=== PATIENT | male | born 1980 | race Caucasian/White ===

== ENCOUNTER 2019-04-25 12:47 | Inpatient (IN) | payer OTHER ==
[~2019-04-25] VITALS: Ht 188 cm; Wt 94.3 kg
--- NOTE | 2019-04-25 12:53 | NUR ---
PT BROUGHT TO CT ACC BY TITA LUO AND DIRECTOR OF TESTING PT IS AOX3, ABLE TO FOLLOW COMMANDS, RA C/O WEAKNESS AND NUMBNESS TO L ARM
--- NOTE | 2019-04-25 12:58 | NUR ---
TELE STROKE ACTIVATED VIA [employer] REQUEST [place].
[2019-04-25 12:59] LABS: BASOPHILS % (AUTO) 0.6 % (0.0-2.0); EOSINOPHILS # (AUTO) 0.1 K/uL (0.0-0.7); EOSINOPHILS % (AUTO) 1.7 % (0.0-7.0); HEMATOCRIT 47.7 % (36.7-47.1); HEMOGLOBIN 16.1 g/dL (12.5-16.3); LYMPHOCYTES # (AUTO) 2.5 K/uL (20.0-40.0); LYMPHOCYTES % (AUTO) 33.4 % (20.5-51.5); MEAN CORPUSCULAR HEMOGLOBIN 28.5 uug (23.8-33.4); MEAN CORPUSCULAR HGB CONC 34 g/dL (32.5-36.3); MEAN CORPUSCULAR VOLUME 84.3 fL (73.0-96.2); MONOCYTES # (AUTO) 0.7 K/uL (2.0-10.0); MONOCYTES % (AUTO) 9.8 % (0.0-11.0); NEUTROPHILS % (AUTO) 54.5 % (38.5-71.5); PLATELET COUNT (AUTO) 295 K/uL (152-348); RED BLOOD CELL COUNT(AUTO) 5.65 MIL/uL (4.06-5.63); WHITE BLOOD COUNT (AUTO) 7.4 K/uL (3.6-10.2)
--- NOTE | 2019-04-25 13:04 | NUR ---
PT BACK FROM CT, PLACED ON MONITOR, CONTACTED [facility] TELE STROKE [phone] AND INFORMED THE PT IS READY FOR ASSESSMENT.
--- NOTE | 2019-04-25 13:04 | NUR ---
PT RETURN FROM CT VIA [facility] BY [employer]
[2019-04-25 13:06] LABS: CREATININE 1.2 mg/dL (0.6-1.3); POTASSIUM 3.4 mmol/L (3.5-5.1)
--- NOTE | 2019-04-25 13:13 | NUR ---
DR. STEPHENSON COMMUNICATING WITH PT VIA TELESTROKE. Addendum: 04/25/19 at 1323 by CAT CORRECTION ON THE NAME OF THE TELE NEURO MD: DR. JOHNSON.
[2019-04-25 13:19] LABS: BILIRUBIN,DIRECT 0.1 mg/dL (0.0-0.2); BILIRUBIN,TOTAL 0.8 mg/dL (0.2-1.0); TOTAL PROTEIN, SERUM 8.5 g/dL (6.4-8.2)
--- NOTE | 2019-04-25 13:23 | NUR ---
NASIMA HICKEY (NEUROLOGY TELEMED) ON THE PHONE WITH MESFIN
--- NOTE | 2019-04-25 13:24 | NUR ---
DR LAUREN BLANCO [facility] (PLANT CLERK) PAGED
--- NOTE | 2019-04-25 13:26 | NUR ---
CALL FOR BED DONE WAITING FOR CALL BACK
[2019-04-25] MEDS ORDERED: ASPIRIN 325 MG TABLET PO ONE (13:45)
[2019-04-25] MEDS ORDERED: ASPIRIN 325 MG TABLET ONE (13:47)
--- NOTE | 2019-04-25 13:55 | NUR ---
WAITING FOR NURSE CALL BACK TO RECEIVE REPORT
--- NOTE | 2019-04-25 14:00 | NUR ---
DR AGUILAR CALLED BACK AND ON THE PHONE WITH DR MONTEIRO
--- NOTE | 2019-04-25 14:00 | NUR ---
PT OK TO ADMIT TO TELE RM 320 DX: TIA UNDER ANNE MAO
--- NOTE | 2019-04-25 14:11 | NUR ---
HAND OFF AND SBAR GIVEN TO MILADY ALVAREZ
[2019-04-25 14:31] LABS: *AMPHETAMINE, URINE NEGATIVE (NEGATIVE); *BARBITURATE, URINE NEGATIVE (NEGATIVE); *CANNABINOID, URINE NEGATIVE (NEGATIVE); *COCCAINE, URINE NEGATIVE (NEGATIVE); *OPIATE, URINE NEGATIVE (NEGATIVE); *PHENCYCLIDINE SCREEN,URINE NEGATIVE (NEGATIVE)
--- NOTE | 2019-04-25 14:59 | NUR ---
PT TRANSFERED TO FLOOR IN STABLE CONDITION. PPT FAMILY MEMBER WITH PT AT THE TIME OF TRANSFER TO FLOOR
--- NOTE | 2019-04-25 15:00 | NUR ---
39 YEAR OLD MALE RECEIVED FROM ER VIA GURNEY TO ROOM 320 FOR TIA.PT IS AXOX4 .CALL LIGHT WITH IN REACH ORIENT THE PT TO ROOM . CALLED FOR ADMISSION ORDERS
--- NOTE | 2019-04-25 15:05 | NUR ---
TRANSPORTED VIA WHEELCHAIR
[2019-04-25 15:15] VITALS: BP 142/83
[2019-04-25] MEDS ORDERED: ONDANSETRON 4 MG/2 ML VIAL IV PRN (17:00)
[2019-04-25] MEDS ORDERED: HYDROCODONE/APAP 5-325MG TABLET PO PRN (17:00)
[2019-04-25] MEDS ORDERED: ACETAMINOPHEN 325 MG TABLET PO PRN (17:00)
[2019-04-25] MEDS ORDERED: ALPRAZOLAM 0.5 MG TABLET PO PRN (19:15)
--- NOTE | 2019-04-25 19:30 | NUR ---
Received patient awake and alert in bed with at bedside. No signs of acute distress noted. No complaints of chest pain or left sided weakness/tingling. Vitals WNL. ST on monitor, Dr. Courtney awake and is speaking with patient at bedside. Heplock on the left forearm is intact and patent. Safety measures initiated. Bed is low and locked, call light within reach. Will continue to monitor.
[2019-04-25 20:25] VITALS: BP 132/82
[2019-04-25] MEDS ORDERED: ATORVASTATIN 40 MG TABLET PO SCH (21:00)
[2019-04-26] VITALS: BP 130/74
[2019-04-26 04:00] VITALS: BP 122/79
[2019-04-26 06:57] LABS: BASOPHILS % (AUTO) 0.3 % (0.0-2.0); BILIRUBIN,TOTAL 0.9 mg/dL (0.2-1.0); CREATININE 1.2 mg/dL (0.6-1.3); EOSINOPHILS # (AUTO) 0.1 K/uL (0.0-0.7); HEMATOCRIT 48.3 % (36.7-47.1); HEMOGLOBIN 16.4 g/dL (12.5-16.3); LYMPHOCYTES # (AUTO) 2.6 K/uL (20.0-40.0); LYMPHOCYTES % (AUTO) 27.6 % (20.5-51.5); MAGNESIUM 2.4 mg/dL (1.8-2.4); MEAN CORPUSCULAR HEMOGLOBIN 28.6 uug (23.8-33.4); MEAN CORPUSCULAR HGB CONC 34 g/dL (32.5-36.3); MEAN CORPUSCULAR VOLUME 84.4 fL (73.0-96.2); MONOCYTES # (AUTO) 1.2 K/uL (2.0-10.0); MONOCYTES % (AUTO) 12.5 % (0.0-11.0); NEUTROPHILS # (AUTO) 5.6 K/uL (1.8-8.9); NEUTROPHILS % (AUTO) 58.6 % (38.5-71.5); PHOSPHOROUS 4.1 mg/dL (2.5-4.9); PLATELET COUNT (AUTO) 258 K/uL (152-348); POTASSIUM 4.4 mmol/L (3.5-5.1); RED BLOOD CELL COUNT(AUTO) 5.73 MIL/uL (4.06-5.63); TOTAL PROTEIN, SERUM 8.3 g/dL (6.4-8.2)
[2019-04-26 07:08] LABS: THYROID STIMULATING HORMONE 3.441 mIU/mL (0.358-3.740)
[2019-04-26 07:17] LABS: WHITE BLOOD COUNT (AUTO) 9.5 K/uL (3.6-10.2)
--- NOTE | 2019-04-26 08:00 | NUR ---
RECEIVED PT RESTING IN BED COMFORTABLY. NO ACUTE DISTRESS NOTED. NO SOB NOTED. PT DENIES PAIN AT THIS TIME. PT IS PLEASANT AND COOPERATIVE. BED LOCKED AND IN LOW POSITION. TELE MONITORING SINUS RHYTHM. WILL CONTINUE TO MONITOR FOR SAFETY AND COMFORT.
[2019-04-26] MEDS ORDERED: ASPIRIN EC 81 MG TABLET.DR PO SCH (09:00)
[2019-04-26 11:14] VITALS: BP 124/80
--- NOTE | 2019-04-26 15:17 | NUR ---
Security Support Analyst Consultation: SW met with patient today. Patient is a 39 year old male, alert, oriented, x 4. Patient was in bed, receptive to meeting with this SW. Patient's was also present in the room. Patient was cooperative throughout this interview, maintaining appropriate eye contact. Patient's affect, mood and behavior were WNL. Thought process and speech were clear and coherent. Patient was brought in by ambulance yesterday after complaining of left arm weakness and having high blood pressure while at work. Patient is an health practice manager. Patient is , lives with his and 2 young daughters, is independent with all ADL's and IADL's, and works timers inspector. Patient reported no significant medical history, and is followed by his PCP regularly. SW explored patient's emotional health, and administered the PHQ-9. Patient scored a 0. Patient reported no changes in mood over the past 2 weeks. Discharge plans discussed, and patient stated he will be returning home after this hospitalization. No further SS interventions needed at this time, however social media developer will be available to the patient and patient's family, if needed. Case Management to assist patient with discharge planning.
[2019-04-26 16:12] VITALS: BP 121/86
--- NOTE | 2019-04-26 16:40 | NUR ---
PT HAS BEEN DISCHARGED. TELE BOX REMOVED. NO ACUTE DISTRESS OR SOB NOTED. PT ALERT AND ORIENTED X3. DISCHARGE INSTRUCTIONS GIVEN TO PATIENT WITH GOOD UNDERSTANDING. PRESCRIPTION SENT TO PT'S PREFERRED PHARMACY. ID BAND REMOVED. IV LINE REMOVED INTACT. BELONGINGS LIST SIGNED. BELONGINGS RETURNED. STEADY GAIT. PT ACCOMPANIED BY .
== END 2019-04-26 16:40 | disposition home or self-care (01) | DRG 74 ==
LOC: ER 12:47 → TELE3 14:59
PROVIDERS: ADMIT Internal Medicine; ATTEND Internal Medicine
DX: G58.9 Mononeuropathy, unspecified (principal); G45.9 Transient cerebral ischemic attack, unspecified; I10 Essential (primary) hypertension; Z82.49 Family history of ischemic heart disease and other diseases of the circulatory system; F41.9 Anxiety disorder, unspecified; E87.6 Hypokalemia; E78.5 Hyperlipidemia, unspecified; Z83.3 Family history of diabetes mellitus; R73.9 Hyperglycemia, unspecified
CPT/HCPCS: 36415; 70030-TC; 70450; 71045; 80307; 83735; 84100; 84443; 85025; 85730; 93005; 93880; G0378